=== PATIENT | female | born 1960 | race Two or more races ===

== ENCOUNTER 2017-11-10 10:38 | Inpatient (IN) | payer MEDICAID ==
[~2017-11-10] VITALS: Ht 149.9 cm; Wt 131.9 kg
[~2017-11-10 10:38] MED LIST: NAPR500T31; TRAM50TA2
[2017-11-10 11:28] LABS: Basophils # (auto) 0 uL; Basophils % (auto) 0.6 % (0.0-2.0); Eosinophils # (auto) 0.1 uL; Eosinophils % (auto) 0.8 % (0.0-7.0); Hematocrit 38.5 % (36.0-46.0); Hemoglobin 12.4 g/dL (12.2-16.2); Lymphocytes # (auto) 0.7 uL; Lymphocytes % (auto) 8.4 % (10.0-50.0); Mean Corpuscular Hemoglobin 32.5 pg (28.0-32.0); Mean Corpuscular Hgb Conc. 32.2 g/dL (32.0-36.0); Mean Corpuscular Volume 100.8 fL (80.0-100.0); Monocytes # (auto) 0.5 uL; Monocytes % (auto) 6.5 % (0.0-12.0); Neutrophils # (auto) 6.7 uL; Neutrophils % (auto) 83.7 % (37.0-80.0); Nucleated Red Blood Cells % 0.1 %; Platelet Count (auto) 320 10^3/uL (140-450); Red Blood Cells 3.82 10^6/uL (4.0-5.20)
[2017-11-10 11:48] LABS: Alanine Aminotransferase 17 U/L (13-56); Albumin 2.5 g/dL (3.4-5.0); Alkaline Phosphatase 94 U/L (45-117); Anion Gap 8 (5-15); Aspartate Aminotransferase 20 U/L (15-37); BUN/Creatinine Ratio 13.4; Bilirubin, Total 0.4 mg/dL (0.2-1.0); Blood Urea Nitrogen 9 mg/dL (7-18); Calcium 8.2 mg/dL (8.5-10.1); Carbon Dioxide 26 mmol/L (21-32); Chloride 101 mmol/L (98-107); GFR African American 118 mL/min; GFR Non-African American 97 mL/min; Glucose 190 mg/dL (74-106); Magnesium 2.4 mg/dL (1.6-2.6); Potassium 3.8 mmol/L (3.5-5.1); Sodium 135 mmol/L (136-145); Total Protein 7.5 g/dL (6.4-8.2)
[2017-11-10] MEDS ORDERED: MORPHINE SULFATE 4 MG/ML SYR/VIAL IV PRN ×2 (15:15)
[2017-11-10] MEDS ORDERED: HYDROcodone-ACET 5/325MG TAB PO PRN (15:15)
[2017-11-10] MEDS ORDERED: TEMAZEPAM 15 MG CAP PO PRN (15:15)
[2017-11-10] MEDS ORDERED: IPRATROPIUM BROM 0.5 MG/2.5ML INH SOL HHN ONE (15:15)
[2017-11-10] MEDS ORDERED: methylPREDNISolone SOD SUCC 125 MG/2 ML VL IV ONE (15:15)
[2017-11-10] MEDS ORDERED: OSELTAMIVIR 75 MG CAP PO ONE (15:15)
[2017-11-10] MEDS ORDERED: ALBUTEROL SULF 2.5 MG/0.5ML(0.5%) NEB SOLN HHN ONE (15:15)
[2017-11-10] MEDS ORDERED: LORazepam 0.5 MG TAB PO PRN (15:15)
[2017-11-10] MEDS ORDERED: NITROGLYCERIN 0.4 MG SL TAB SL PRN (15:15)
[2017-11-10] MEDS ORDERED: PROMETHAZINE HCL 25 MG/ML 1ML IV PRN (15:15)
[2017-11-10] MEDS ORDERED: ALBUTEROL SULF 2.5 MG/0.5ML(0.5%) NEB SOLN NEB PRN (15:15)
[2017-11-10] MEDS ORDERED: LACTULOSE 20Gm/30ML SOLN PO PRN (15:15)
[2017-11-10] MEDS ORDERED: DEXTROSE (50%) 50ML SYRG IV PRN (15:15)
[2017-11-10] MEDS ORDERED: ACETAMINOPHEN 500 MG TAB PO PRN (15:15)
[2017-11-10 15:59] LABS: Urine Bacteria NONE SEEN /hpf (None Seen); Urine Blood Negative /uL (Negative); Urine Mucus FEW (None Seen); Urine Specific Gravity 1.017 (1.001-1.035); Urine WBC 1 /hpf (0 - 5)
[2017-11-10 16:24] VITALS: BP 112/74
[2017-11-10] MEDS: methylPREDNISolone SOD SUCC 40 MG/ML VL IV SCH (16:47)
[2017-11-10] MEDS: SODIUM CHLORIDE 0.9% 1,000 ML IV SCH (16:47)
[2017-11-10] MEDS: LEVOFLOXACIN 500MG 100 ML IV SCH (16:47)
[2017-11-10] MEDS: InsuLIN REG 1unit/0.01ml Soln (100units/ml) SC SCH ×2 (17:00→22:03)
[2017-11-10] MEDS ORDERED: IOHEXOL 300 MG/ML 100ML BOTTLE IJ ONE (17:02)
[2017-11-10] MEDS: ACCU-CHEK COMFORT CURVE STRIP VI SCH ×2 (17:44→21:59)
[2017-11-10] MEDS: ALBUTEROL SULF 2.5 MG/0.5ML(0.5%) NEB SOLN NEB SCH (19:32)
[2017-11-10] MEDS: IPRATROPIUM BROM 0.5 MG/2.5ML INH SOL NEB SCH (19:32)
[2017-11-10 22:00] VITALS: BP 135/80
[2017-11-10] MEDS ORDERED: OSELTAMIVIR 75 MG CAP PO SCH (22:00)
[2017-11-11] MEDS: IPRATROPIUM BROM 0.5 MG/2.5ML INH SOL NEB SCH ×4 (01:57→19:20)
[2017-11-11] MEDS: ALBUTEROL SULF 2.5 MG/0.5ML(0.5%) NEB SOLN NEB SCH ×4 (01:57→19:21)
[2017-11-11] MEDS: methylPREDNISolone SOD SUCC 40 MG/ML VL IV SCH ×2 (02:39→14:54)
[2017-11-11] MEDS: SODIUM CHLORIDE 0.9% 1,000 ML IV SCH ×2 (04:30→17:47)
[2017-11-11 05:00] VITALS: BP 145/83
[2017-11-11] MEDS: ACCU-CHEK COMFORT CURVE STRIP VI SCH ×4 (06:39→21:56)
[2017-11-11] MEDS: InsuLIN REG 1unit/0.01ml Soln (100units/ml) SC SCH ×4 (06:44→22:00)
[2017-11-11 08:45] VITALS: BP 125/74
[2017-11-11] MEDS: LEVOFLOXACIN 500MG 100 ML IV SCH (09:44)
[2017-11-11] MEDS: ENOXAPARIN SOD 40 MG/0.4 ML SYRINGE SC SCH (09:45)
[2017-11-11] MEDS ORDERED: COEN1CAP PO (09:48)
[2017-11-11] MEDS ORDERED: HYDR-4683 PO (09:48)
[2017-11-11] MEDS ORDERED: NUTR1LIQ94 PO (09:48)
[2017-11-11] MEDS ORDERED: LEVO750T64 PO (09:48)
[2017-11-11] MEDS ORDERED: COLO100C PO (09:48)
[2017-11-11 12:00] VITALS: BP 142/82
[2017-11-11 17:35] VITALS: BP 131/75
[2017-11-11 22:00] VITALS: BP 134/86
[2017-11-11] MEDS ORDERED: DEXAMETHASONE 4 MG TAB PO SCH (22:00)
[2017-11-12] VITALS (7 sets, daily range): BP systolic 117–130; BP diastolic 61–78
[2017-11-12] MEDS: ALBUTEROL SULF 2.5 MG/0.5ML(0.5%) NEB SOLN NEB SCH ×4 (00:53→19:55)
[2017-11-12] MEDS: IPRATROPIUM BROM 0.5 MG/2.5ML INH SOL NEB SCH ×4 (00:53→19:54)
[2017-11-12] MEDS: ACCU-CHEK COMFORT CURVE STRIP VI SCH ×4 (06:13→21:34)
[2017-11-12] MEDS: InsuLIN REG 1unit/0.01ml Soln (100units/ml) SC SCH ×4 (06:14→21:34)
[2017-11-12] MEDS: FUROSEMIDE 40 MG TAB PO SCH ×2 (06:14→17:36)
[2017-11-12 07:06] LABS: BUN/Creatinine Ratio 23.5; Calcium 9.4 mg/dL (8.5-10.1); Potassium 4.1 mmol/L (3.5-5.1)
[2017-11-12] MEDS: DEXAMETHASONE 4 MG TAB PO SCH ×2 (11:12→17:36)
[2017-11-12] MEDS: ENOXAPARIN SOD 40 MG/0.4 ML SYRINGE SC SCH (11:12)
[2017-11-12] MEDS: LEVOFLOXACIN 500MG 100 ML IV SCH (11:13)
[2017-11-13] MEDS: ALBUTEROL SULF 2.5 MG/0.5ML(0.5%) NEB SOLN NEB SCH ×3 (01:28→11:43)
[2017-11-13] MEDS: IPRATROPIUM BROM 0.5 MG/2.5ML INH SOL NEB SCH ×3 (01:28→11:43)
[2017-11-13 04:52] VITALS: BP 123/78
[2017-11-13] MEDS: DEXAMETHASONE 4 MG TAB PO SCH (05:28)
[2017-11-13] MEDS: FUROSEMIDE 40 MG TAB PO SCH (05:29)
[2017-11-13] MEDS: InsuLIN REG 1unit/0.01ml Soln (100units/ml) SC SCH ×2 (05:30→11:58)
[2017-11-13] MEDS: ACCU-CHEK COMFORT CURVE STRIP VI SCH ×2 (05:30→11:58)
[2017-11-13 08:00] VITALS: BP 119/71
[2017-11-13 08:19] VITALS: BP 119/71
[2017-11-13 08:32] VITALS: BP 119/71
[2017-11-13] MEDS: LEVOFLOXACIN 500MG 100 ML IV SCH (10:27)
[2017-11-13] MEDS: ENOXAPARIN SOD 40 MG/0.4 ML SYRINGE SC SCH (10:27)
[2017-11-13 11:58] VITALS: BP 121/67
== END 2017-11-13 15:25 | disposition home or self-care (01) | DRG 197 ==
LOC: ER 10:38 → TELE 10:39 → TELE-EAST 17:31
PROVIDERS: ADMIT Internal Medicine; ATTEND Internal Medicine Pulmonary Disease
DX: I87.1 Compression of vein (principal); Z68.43 Body mass index [BMI] 50.0-59.9, adult; E44.0 Moderate protein-calorie malnutrition; J45.901 Unspecified asthma with (acute) exacerbation; E66.01 Morbid (severe) obesity due to excess calories; K76.0 Fatty (change of) liver, not elsewhere classified; K43.9 Ventral hernia without obstruction or gangrene; E11.9 Type 2 diabetes mellitus without complications; I10 Essential (primary) hypertension; Z82.49 Family history of ischemic heart disease and other diseases of the circulatory system; Z85.3 Personal history of malignant neoplasm of breast; Z90.12 Acquired absence of left breast and nipple; Z90.2 Acquired absence of lung [part of]; Z90.49 Acquired absence of other specified parts of digestive tract; Z98.51 Tubal ligation status; Z88.0 Allergy status to penicillin
CPT/HCPCS: 36415; 71046; 71250; 71260; 80048; 80053; 81001; 82962; 83036; 83735; 84484; 85025; 87070; 87205; 87804; 93005; 93971; 94640; 96361; 96365; J1815; J1956

== ENCOUNTER 2017-11-25 21:41 | Inpatient (IN) | payer MEDICAID ==
[~2017-11-25] VITALS: Ht 152.4 cm; Wt 124.7 kg
[~2017-11-25 21:41] MED LIST changes: +COEN1CAP PO; +COLO100C PO; +HYDR-4683 PO; +LEVO750T64 PO; +NUTR1LIQ94 PO
[2017-11-25] MEDS ORDERED: ETOMIDATE (2MG/ML) 20ML VIAL IV ONE ×2 (21:54→22:15)
[2017-11-25] MEDS ORDERED: NALOXONE HCL 0.4 MG/ML VIAL ONE (21:54)
[2017-11-25] MEDS ORDERED: SUCCINYLCHOLINE CHLORIDE 20 MG/ML 10ML VIAL IV ONE ×2 (21:54→22:15)
[2017-11-25 22:03] VITALS: BP 117/92
[2017-11-25] MEDS ORDERED: MIDAZOLAM DRIP 50 mg/50mL 50 ML IV ONE (22:07)
[2017-11-25] MEDS: MIDAZOLAM DRIP 50 mg/50mL 50 ML IV SCH (22:10)
[2017-11-25] MEDS ORDERED: IOHEXOL 350 MG/ML 100ML IJ ONE (22:16)
[2017-11-25 22:28] LABS: Basophils # (auto) 0 uL; Basophils % (auto) 0.3 % (0.0-2.0); Eosinophils # (auto) 0.2 uL; Eosinophils % (auto) 1.8 % (0.0-7.0); Hematocrit 42.1 % (36.0-46.0); Hemoglobin 13.5 g/dL (12.2-16.2); Lymphocytes # (auto) 2.3 uL; Lymphocytes % (auto) 20.8 % (10.0-50.0); Mean Corpuscular Hemoglobin 32.7 pg (28.0-32.0); Mean Corpuscular Hgb Conc. 32.1 g/dL (32.0-36.0); Mean Corpuscular Volume 101.8 fL (80.0-100.0); Monocytes # (auto) 1.2 uL; Monocytes % (auto) 10.9 % (0.0-12.0); Neutrophils # (auto) 7.3 uL; Neutrophils % (auto) 66.2 % (37.0-80.0); Nucleated Red Blood Cells % 0.2 %; Platelet Count (auto) 306 10^3/uL (140-450); Red Blood Cells 4.13 10^6/uL (4.0-5.20); Red Cell Distribution Width 15.4 % (11.8-14.3); White Blood Cell 11.1 10^3/uL (4.4-10.8)
[2017-11-25 22:42] LABS: Alanine Aminotransferase 21 U/L (13-56); Anion Gap 4 (5-15); Aspartate Aminotransferase 25 U/L (15-37); BUN/Creatinine Ratio 16.4; Blood Urea Nitrogen 10 mg/dL (7-18); Calcium 8.5 mg/dL (8.5-10.1); Carbon Dioxide 36 mmol/L (21-32); Chloride 93 mmol/L (98-107); GFR African American 131 mL/min; GFR Non-African American 108 mL/min; Glucose 171 mg/dL (74-106); Magnesium 2.3 mg/dL (1.6-2.6); Potassium 4.6 mmol/L (3.5-5.1); Sodium 133 mmol/L (136-145)
[2017-11-25 22:47] LABS: Alkaline Phosphatase 111 U/L (45-117); Bilirubin, Total 0.6 mg/dL (0.2-1.0)
[2017-11-26] VITALS (42 sets, daily range): BP systolic 74–160; BP diastolic 44–106
[2017-11-26] MEDS ORDERED: PROPOFOL 100 ML IV ONE (04:00)
[2017-11-26] MEDS: PROPOFOL 100 ML IV SCH ×2 (04:18→09:10)
[2017-11-26] MEDS ORDERED: LORazepam 2MG/ML-1ML VIAL IV PRN (05:30)
[2017-11-26] MEDS ORDERED: ACETAMINOPHEN 500 MG TAB PO PRN (05:30)
[2017-11-26] MEDS ORDERED: ONDANSETRON HCL 4 MG/2 ML VIAL IV PRN (05:30)
[2017-11-26] MEDS: NOREPINEPHRINE 8 MG/250ML KIT 250 ML IV SCH ×2 (05:30→12:13)
[2017-11-26] MEDS: fentaNYL Drip 2500mCg/250mlNS 250 ML IV SCH ×2 (08:46→20:30)
[2017-11-26] MEDS: DEXAMETHASONE SOD PHOS 4 MG/1ML SDV INJ IV SCH ×2 (08:48→22:00)
[2017-11-26] MEDS ORDERED: SODIUM CHLORIDE 0.9% 500 ML IV ONE (09:00)
[2017-11-26] MEDS: MIDAZOLAM DRIP 50 mg/50mL 50 ML IV SCH ×2 (09:11→12:14)
[2017-11-26 09:16] LABS: Basophils # (auto) 0.1 uL; Basophils % (auto) 0.5 % (0.0-2.0); Eosinophils # (auto) 0 uL; Eosinophils % (auto) 0.1 % (0.0-7.0); Hematocrit 40.6 % (36.0-46.0); Hemoglobin 12.9 g/dL (12.2-16.2); Lymphocytes # (auto) 0.8 uL; Lymphocytes % (auto) 3.5 % (10.0-50.0); Mean Corpuscular Hemoglobin 32.4 pg (28.0-32.0); Mean Corpuscular Hgb Conc. 31.8 g/dL (32.0-36.0); Mean Corpuscular Volume 101.7 fL (80.0-100.0); Monocytes # (auto) 2.5 uL; Monocytes % (auto) 11.7 % (0.0-12.0); Neutrophils # (auto) 18.2 uL; Neutrophils % (auto) 84.2 % (37.0-80.0); Nucleated Red Blood Cells % 0.3 %; Platelet Count (auto) 343 10^3/uL (140-450); Red Cell Distribution Width 15.4 % (11.8-14.3); White Blood Cell 21.6 10^3/uL (4.4-10.8)
[2017-11-26 09:32] LABS: BUN/Creatinine Ratio 8.2; Calcium 8.7 mg/dL (8.5-10.1); Potassium 5.5 mmol/L (3.5-5.1)
[2017-11-26] MEDS ORDERED: ENOXAPARIN SOD 30 MG/0.3 ML SYRINGE SC SCH (10:00)
[2017-11-26] MEDS: ENOXAPARIN SOD 40 MG/0.4 ML SYRINGE SC SCH ×2 (10:17→22:00)
[2017-11-26] MEDS: PANTOPRAZOLE 40 MG/10 ML VIAL IV SCH (10:17)
[2017-11-26] MEDS: SODIUM CHLORIDE 0.9% 1,000 ML IV SCH ×2 (13:30→23:30)
[2017-11-26] MEDS ORDERED: NITROGLYCERIN 2% OINT 1GM PKG TD ONE (15:09)
[2017-11-27] VITALS (17 sets, daily range): BP systolic 40–63; BP diastolic 19–36
[2017-11-27] MEDS: DEXAMETHASONE SOD PHOS 4 MG/1ML SDV INJ IV SCH ×2 (06:00→15:00)
[2017-11-27] MEDS: SODIUM CHLORIDE 0.9% 1,000 ML IV SCH (09:30)
[2017-11-27] MEDS: ENOXAPARIN SOD 40 MG/0.4 ML SYRINGE SC SCH (10:00)
[2017-11-27] MEDS: PANTOPRAZOLE 40 MG/10 ML VIAL IV SCH (10:00)
[2017-11-27] MEDS ORDERED: ACETAMINOPHEN 650 mg PER 20 mL UD ONE (10:16)
[2017-11-27] MEDS: fentaNYL Drip 2500mCg/250mlNS 250 ML IV SCH (11:54)
[2017-11-27] MEDS ORDERED: cefTRIAXone 1GM/10ml IVPUSH 10 ML IV ONE (12:45)
[2017-11-27] MEDS ORDERED: CLINDAMYCIN 600MG IV 50 ML IV SCH (14:00)
[2017-11-28] MEDS ORDERED: cefTRIAXone 1GM/10ml IVPUSH 10 ML IV SCH (09:00)
== END 2017-11-27 15:40 | disposition expired | DRG 720 ==
LOC: ER 21:45 → TELE 21:46 → ICU WEST 11-26 04:30
PROVIDERS: ADMIT Nurse Practitioner Family; ATTEND Internal Medicine
PROC: 5A1945Z Respiratory Ventilation, 24-96 Consecutive Hours (ICD-10-PCS; principal; 2017-11-26)
PROC: 0BH17EZ Insertion of Endotracheal Airway into Trachea, Via Natural or Artificial Opening (ICD-10-PCS; 2017-11-26)
DX: A41.9 Sepsis, unspecified organism (principal); J96.00 Acute respiratory failure, unspecified whether with hypoxia or hypercapnia; N17.0 Acute kidney failure with tubular necrosis; R57.9 Shock, unspecified; J18.9 Pneumonia, unspecified organism; C50.919 Malignant neoplasm of unspecified site of unspecified female breast; E87.1 Hypo-osmolality and hyponatremia; E66.01 Morbid (severe) obesity due to excess calories; E11.9 Type 2 diabetes mellitus without complications; Z66 Do not resuscitate; M19.90 Unspecified osteoarthritis, unspecified site; I10 Essential (primary) hypertension; Z85.118 Personal history of other malignant neoplasm of bronchus and lung; Z85.3 Personal history of malignant neoplasm of breast; Z86.73 Personal history of transient ischemic attack (TIA), and cerebral infarction without residual deficits; Z90.12 Acquired absence of left breast and nipple; Z88.0 Allergy status to penicillin; Z68.43 Body mass index [BMI] 50.0-59.9, adult
CPT/HCPCS: 31500; 36415; 36600; 51702; 70450; 71045; 71260; 80048; 80053; 82805; 83036; 83605; 83735; 83880; 84443; 84484; 85025; 85379; 87040; 87070; 87081; 87205; 93005; 94002; 94003; 96374; 99291; C9113; J0330; J1100; J2250; J2704; J3490